=== PATIENT | male | born 1960 | race Caucasian/White ===

== ENCOUNTER 2018-10-05 15:52 | Outpatient (REF) | payer MEDICARE, MEDICAID, SELFPAY ==
[2018-10-05 20:24] LABS: Anion Gap 11.2 mmol/L (3-11); BUN 34 mg/dL (7-18); CO2 24.8 mmol/L (21.0-32.0); CREATININE 1.72 mg/dL (0.70-1.30); Calcium 9.1 mg/dL (8.5-10.1); Chloride 104 mmol/L (98-107); Estimated GFR 41.34 (mL/min/1.73m2); Glucose 142 mg/dL (70-100); LDL CHOLESTEROL 69 mg/dL (<100); Potassium 4.4 mmol/L (3.5-5.1); Sodium 140 mmol/L (136-145)
== END 2018-10-05 16:12 ==
LOC: NCHCN 15:52
PROVIDERS: PCP Physician Assistant Medical; Visit Provider Internal Medicine
DX: E78.5 Hyperlipidemia, unspecified (principal)
CPT/HCPCS: 80048; 83721; 85610; 85730

== ENCOUNTER 2018-10-06 16:53 | Outpatient (REF) | payer MEDICARE, MEDICAID, SELFPAY ==
[2018-10-06 18:50] LABS: INR 0.9 (0.9-1.1); Prothrombin Time 9.3 sec (9.3-11.0)
== END 2018-10-06 17:13 ==
LOC: NCHCN 16:53
PROVIDERS: PCP Physician Assistant Medical; Visit Provider Internal Medicine
DX: I73.9 Peripheral vascular disease, unspecified (principal); M16.11 Unilateral primary osteoarthritis, right hip; F17.210 Nicotine dependence, cigarettes, uncomplicated; E78.5 Hyperlipidemia, unspecified
CPT/HCPCS: 85610; 85730

== ENCOUNTER 2018-10-18 09:26 | Outpatient (REF) | payer MEDICAID, SELFPAY ==
[2018-10-18 19:03] LABS: Anion Gap 10.3 mmol/L (3-11); BUN 20 mg/dL (7-18); CO2 24.7 mmol/L (21.0-32.0); CREATININE 1.03 mg/dL (0.70-1.30); Chloride 103 mmol/L (98-107); Glucose 143 mg/dL (70-100); Potassium 4.2 mmol/L (3.5-5.1); Sodium 138 mmol/L (136-145)
[2018-10-18 19:26] LABS: Prot/Crea Ur Ratio 0.07
[2018-10-20 13:18] LABS: Albumin 57.8 % (55.8-66.1); Total Protein 7.3 g/dl (6.3-8.2)
[2018-10-20 14:41] LABS: Albumin, Urine % 27.7 %; Comment SEE COMMENTS; Globulins, Urine % 72.3; Total Protein Urine 8 mg/dl
== END 2018-10-18 09:46 ==
LOC: NCHCN 09:26
PROVIDERS: PCP Physician Assistant Medical; Visit Provider Internal Medicine
DX: N18.3 Chronic kidney disease, stage 3 (moderate) (principal)
CPT/HCPCS: 80048; 84156; 84166; 86335; 82565; 84165

== ENCOUNTER 2019-01-04 18:39 | Outpatient (REF) | payer SELFPAY ==
[2019-01-07 14:00] LABS: Benzoylecgonine 978 ng/mL (Cutoff: 50); Cocaine Negative ng/mL (Cutoff: 50); Cocaine Interpretation Positive.
== END 2019-01-04 18:59 ==
LOC: NCHCN 18:39
PROVIDERS: Internal Medicine; PCP Physician Assistant Medical; Visit Provider Family Medicine
DX: M16.11 Unilateral primary osteoarthritis, right hip (principal); Z79.899 Other long term (current) drug therapy
CPT/HCPCS: 80353

== ENCOUNTER 2019-11-29 22:30 | Outpatient (REF) | payer SELFPAY ==
[2019-11-29 22:42] LABS: BUN 30 mg/dL (7-18); CREATININE 1.21 mg/dL (0.70-1.30)
== END 2019-11-29 22:50 ==
LOC: LBN 22:30
PROVIDERS: PCP Physician Assistant Medical; Visit Provider Surgery Vascular Surgery
DX: I73.9 Peripheral vascular disease, unspecified (principal)
CPT/HCPCS: 84520; 82565

== ENCOUNTER 2020-04-17 17:08 | Outpatient (REF) | payer MEDICARE, MEDICAID, SELFPAY ==
[2020-04-19 14:42] LABS: COVID-19 RT-PCR UVMMC Result Negative (Negative)
== END 2020-04-17 17:09 | disposition home or self-care (01) ==
LOC: NCHCN 17:08
PROVIDERS: PCP Physician Assistant Medical; Visit Provider Internal Medicine
DX: Z20.822 Contact with and (suspected) exposure to COVID-19 (principal); R06.00 Dyspnea, unspecified
CPT/HCPCS: U0003; U0005

== ENCOUNTER 2020-04-22 19:03 | Outpatient (REF) | payer MEDICARE, MEDICAID, SELFPAY ==
[2020-04-22 15:39] LABS: HCT 44.3 % (40.0-50.0); HGB 15.2 g/dL (13.5-17.5); MCH 32.1 pg (27.0-33.0); MCHC 34.3 % (32.0-36.0); MCV 93.7 fL (80-95); Platelet Count 192 10^3/uL (130-400); RBC 4.73 10^6/uL (4.36-5.78); RDW-SD 41.8 fL; WBC 10.08 10^3/uL (4.4-10.8)
[2020-04-22 15:43] LABS: Anion Gap 13.2 mmol/L (3-11); BUN 18 mg/dL (7-18); CO2 22.8 mmol/L (21.0-32.0); CREATININE 1.6 mg/dL (0.70-1.30); Calcium 9.1 mg/dL (8.5-10.1); Chloride 98 mmol/L (98-107); Estimated GFR 44.78 (mL/min/1.73m2); Glucose 435 mg/dL (74-106); Potassium 4.2 mmol/L (3.5-5.1); Sodium 134 mmol/L (136-145)
[2020-04-22 17:29] LABS: C Diff PCR Negative (Negative)
[2020-04-23 11:32] LABS: Campylobacter PCR Negative (Negative); Salmonella PCR Negative (Negative); Shiga Toxin PCR Negative (Negative); Shigella/Enteroinvasive Ecoli Negative (Negative)
== END 2020-04-22 19:04 | disposition home or self-care (01) ==
LOC: NCHCN 19:03
PROVIDERS: PCP Physician Assistant Medical; Visit Provider Internal Medicine
DX: K52.9 Noninfective gastroenteritis and colitis, unspecified (principal)
CPT/HCPCS: 80048; 85027; 87329; 87493; 87505